=== PATIENT | female | born 1975 | race American Indian/Alaskan Native ===

== ENCOUNTER 2019-05-26 00:32 | Emergency (ER) | payer MEDICAID, OTHER ==
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
[2019-05-26] MEDS ORDERED: LORazepam 2 MG/ML SDV IVPUSH ONE ×2 (01:34→05:39)
[2019-05-26] MEDS ORDERED: Metoclopramide 10 MG/2 ML SDV IVPUSH ONE (01:38)
[2019-05-26] MEDS ORDERED: Sodium Chloride 0.9% 1,000 ML IV SCH (01:45)
[2019-05-26] MEDS ORDERED: cefTRIAXone 2 GM in Sodium Chloride 0.9% 100 ML IV SCH (01:45)
[2019-05-26] MEDS ORDERED: HYDROmorphone 1 MG/ML Syringe IVPUSH ONE (04:37)
[2019-05-26] MEDS ORDERED: Ondansetron 4 MG/2 ML SDV IVPUSH ONE (05:41)
[2019-05-26] MEDS ORDERED: Ondansetron 4 MG Tab.DIS PO ONE (05:53)
--- NOTE | 2019-05-26 07:38 | CR ---
Chest: Portable view of the chest was obtained. Comparison: No prior chest x-ray. Heart size is normal. Tortuous thoracic aorta is seen. Lungs are clear with no acute parenchymal change. Bony structures are grossly intact. Impression: 1. Nothing acute is seen on portable chest x-ray. Diagnostic code #1
== END 2019-05-26 08:48 | disposition home or self-care (01) ==
LOC: JD.ED 00:32
DX: F41.9 Anxiety disorder, unspecified (principal); R11.0 Nausea; I10 Essential (primary) hypertension; E11.9 Type 2 diabetes mellitus without complications; F17.210 Nicotine dependence, cigarettes, uncomplicated; Z88.6 Allergy status to analgesic agent; Z88.5 Allergy status to narcotic agent; Z88.8 Allergy status to other drugs, medicaments and biological substances; Z88.1 Allergy status to other antibiotic agents
CPT/HCPCS: 36415; 71045; 80053; 80306; 80320; 81001; 82009; 83605; 83735; 83880; 83930; 84484; 85025; 85610; 85730; 87077; 87081; 87430; 93005; 96361; 96365; 96375; 96376; 99285; A9270; J0696; J1170; J2060; J2765; J7030; J7040; 93010; 99284; G0480

== ENCOUNTER 2019-05-27 02:00 | Emergency (ER) | payer OTHER ==
[2019-05-27] MEDS ORDERED: HYDROmorphone 1 MG/ML Syringe IVPUSH ONE (03:11)
[2019-05-27] MEDS ORDERED: LORazepam 2 MG/ML SDV IVPUSH ONE (03:12)
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
[2019-05-27] MEDS ORDERED: Sodium Chloride 0.9% 1,000 ML IV SCH (03:15)
[2019-05-27] MEDS ORDERED: Metoclopramide 10 MG/2 ML SDV IVPUSH ONE (03:16)
[2019-05-27] MEDS ORDERED: Cephalexin 500 MG Cap PO ONE (05:07)
== END 2019-05-27 05:20 | disposition home or self-care (01) ==
LOC: JD.ED 02:00
DX: F10.230 Alcohol dependence with withdrawal, uncomplicated (principal); J01.20 Acute ethmoidal sinusitis, unspecified; I10 Essential (primary) hypertension; E11.9 Type 2 diabetes mellitus without complications; F17.210 Nicotine dependence, cigarettes, uncomplicated; Z88.5 Allergy status to narcotic agent; Z88.6 Allergy status to analgesic agent; Z88.8 Allergy status to other drugs, medicaments and biological substances; Z88.1 Allergy status to other antibiotic agents
CPT/HCPCS: 36415; 80053; 85025; 86140; 96361; 96374; 96375; 99285; A9270; J1170; J2060; J2765; J7040; 99284